=== PATIENT | female | born 1945 | race Caucasian/White ===

== ENCOUNTER 2017-05-07 08:46 | Day surgery (SDC) | payer MEDICARE, OTHER ==
[~2017-05-07 08:46] MED LIST: ATROPINE 1 MG/10 ML SYRINGE IV; CEFAZOLIN 1 GM INJ; DIPHENHYDRAMINE 50 MG INJ IV; EPHEDrine SULFATE 50 MG/5 ML SYG IV; FENTAnyl 50 MCG/ML VIAL IV; HYDROmorphONE (0.2 MG/ML) 10ML SYG IV; LABETALOL HCL 20MG INJ IV; MEPERIDINE 25 MG INJ IV; MIDAZOLAM 1 MG/ML 2 ML INJ IV; ONDANSETRON 4 MG INJ IV; OXYCODONE/ACETAMINOPHEN (5/325) TAB PO; hydrALAzine 20 MG INJ IV; morphine (1 MG/ML) 10ML SYRINGE IV
[2017-05-07] MEDS ORDERED: GLYCOPYRROLATE 1 MG INJ (09:03)
[2017-05-07] MEDS ORDERED: FENTAnyl 50 MCG/ML VIAL (09:03)
[2017-05-07] MEDS ORDERED: PROPOFOL 20 ML (09:03)
[2017-05-07] MEDS ORDERED: LIDOCAINE 2% (SDV) 5 ML INJ (09:03)
[2017-05-07] MEDS ORDERED: ROCURONIUM 50 MG INJ (09:03)
[2017-05-07] MEDS ORDERED: MIDAZOLAM 1 MG/ML 2 ML INJ (09:03)
[2017-05-07] MEDS ORDERED: NEOSTIGMINE 3 MG/3 ML SYRINGE (09:03)
[2017-05-07] MEDS ORDERED: DEXAMETHASONE 4 MG/ML 1 ML INJ (09:04)
[2017-05-07] MEDS ORDERED: ONDANSETRON 4 MG INJ (09:04)
[2017-05-07] MEDS: BUPIVACAINE 0.25% (MPF) 30 ML INJ (10:19)
[2017-05-07] MEDS: LIDOCAINE 1% (MPF) 30 ML INJ (10:19)
== END 2017-05-07 14:29 | disposition home or self-care (01) ==
LOC: SDS 08:46
DX: S92.411A Displaced fracture of proximal phalanx of right great toe, initial encounter for closed fracture (principal); X58.XXXA Exposure to other specified factors, initial encounter; I10 Essential (primary) hypertension; E11.9 Type 2 diabetes mellitus without complications; J45.909 Unspecified asthma, uncomplicated; E78.5 Hyperlipidemia, unspecified
CPT/HCPCS: 28755; 82962